=== PATIENT | female | born 1990 | race Caucasian/White ===

== ENCOUNTER 2018-06-14 11:04 | Emergency (ER) | payer BC ==
--- NOTE | 2018-06-14 11:31 | EDM.PDOC ---
ED HPI GENERAL MEDICAL PROBLEM - General Chief Complaint: Eye Problems Stated Complaint: RIGHT EYE SWOLLEN Time Seen by Provider: 06/14/18 11:12 Source of Information: Reports: Patient History Limitations: Reports: No Limitations - History of Present Illness INITIAL COMMENTS - FREE TEXT/NARRATIVE: HISTORY AND PHYSICAL: History of present illness: Patient is a 27-year-old female who presents to the emergency room today with complaints of swelling around the right eye and itching. She states yesterday she had been working in the garden and had noticed some tenderness to the skin under her right eye. "I thought maybe it was a bug bite or something". As the evening progressed the eye swelling became more prominent. She woke up this morning and unable to open her eye due to the swelling. She has no pain with ocular movements but does have discomfort when palpating the skin around the eye. She wears glasses, no contact lenses. Denies any visual changes other than the obstruction due to swelling. She has no eye watering or discharge. Denies any fever, chills, chest pain, SOB, cough, GI or symptoms. Denies any injury or trauma. Review of systems: As per history of present illness and below otherwise all systems reviewed and negative. Past medical history: As per history of present illness and as reviewed below otherwise noncontributory. Surgical history: As per history of present illness and as reviewed below otherwise noncontributory. Social history: No reported history of drug or alcohol abuse. Family history: As per history of present illness and as reviewed below otherwise noncontributory. Physical exam: General: Well-developed and well-nourished 27-year-old female. Alert and oriented. Nontoxic appearing and in no acute distress. HEENT: Atraumatic, normocephalic, pupils equal and reactive bilaterally, negative for conjunctival pallor or scleral icterus, moderate amount of soft tissue swelling to the soft tissue around the right eye (extending to the upper and lower lid). No pain with intraoccular movement, no ocular impingement. Her mucous membranes moist, throat clear, neck supple, nontender, trachea midline. No drooling or trismus noted. No meningeal signs Lungs: Clear to auscultation, breath sounds equal bilaterally, chest nontender. Heart: S1S2, regular rate and rhythm without overt murmur Abdomen: Soft, nondistended, nontender. Negative for masses or hepatosplenomegaly. Negative for costovertebral tenderness. Pelvis: Stable nontender. Genitourinary: Deferred. Rectal: Deferred. Skin: Mild erythema at site of soft tissue swelling around the right orbit. Otherwise skin is intact, warm, dry. No lesions or rashes noted. Extremities: Atraumatic, moves all extremities without difficulty, negative for cords or calf pain. Neurovascular unremarkable. Neuro: Awake, alert, oriented. Cranial nerves II through XII unremarkable. Cerebellum unremarkable. Motor and sensory unremarkable throughout. Exam nonfocal. Notes: Visual acuity is 20/25 on the right- 20/20 on the left and bilateral. This was done with glasses. CBC, CMP, Urine labs are within normal limits. CT shows preseptal fluid inferior and lateral to the right orbit. This may represent preseptal periorbital cellulitis. No evidence of orbital cellulitis. This information was shared with the patient. She continues to have no ocular pain with movement. Vital signs remained stable, afebrile. We did discuss possible admission which she declines. We'll place her on clindamycin 300 mg 3 times a day 10 days. Tramadol, #15, no refill. We discussed signs and symptoms that would prompt her to return to the emergency room. She voices understanding. We will refer her to the outpatient clinic for reevaluation next week. She is agreeable to plan of care and denies any further questions at this time. Diagnostics: CBC, CMP, Maxillofacial CT Therapeutics: Saline Lock, Rocephin, Solu-Medrol Impression: Periorbital Cellulitis, right Plan: 1. Continue to monitor the site for signs of improvement. As we discussed, if the swelling becomes worse, pain with eye movement, fever, chills or increased redness to the area-return for admission. 2. Take the antibiotics as directed. 3. Tylenol and/or ibuprofen as needed for pain management. Tramadol has been prescribed for moderate to severe pain. This medication may cause drowsiness a do not take it will driving her needing to be functioning outside of the house. 4. It's important that you follow up with her primary care provider for further evaluation and management next week, preferrable Friday. Return to the ED as needed and as discussed. Definitive disposition and diagnosis as appropriate pending reevaluation and review of above. Right eye Pain Score (Numeric/FACES): 1 - Related Data Allergies Allergy/AdvReac Type Severity Reaction Status Date / Time No Known Allergies Allergy Verified 09/07/16 02:06 Home Meds: Home Meds Clindamycin HCl 300 mg PO TID #30 capsule 06/14/18 [Rx] traMADol [Ultram] 50 mg PO Q4H PRN #15 tab 06/14/18 [Rx] Past Medical History Dermatologic History: Reports: Other (See Below) Other Dermatologic History: cyst remobed from left eye brow - Infectious Disease History Infectious Disease History: Reports: Chicken Pox, Shingles Social & Family History - Family History Family Medical History: Noncontributory - Caffeine Use Caffeine Use: Reports: None ED ROS GENERAL - Review of Systems Review Of Systems: ROS reveals no pertinent complaints other than HPI. ED EXAM GENERAL W FULL EYE - Physical Exam Exam: See Below (See dictation) Course - Vital Signs Last Recorded V/S: Last Vital Signs Temp 98 F 06/14/18 13:09 Pulse 78 06/14/18 13:09 Resp 19 06/14/18 13:09 BP 128/69 06/14/18 13:09 Pulse Ox 98 06/14/18 13:09 - Orders/Labs/Meds Orders: Active Orders 24 hr Category Date Time Status Maxillofacial with CM [Max Facial Sinus w Cont] [CT] Exams 06/14/18 11:18 Taken Stat Labs: Laboratory Tests 06/14/18 06/14/18 06/14/18 Range/Units 11:30 11:30 11:30 WBC 4.75 (4.0-11.0) K/uL RBC 3.93 L (4.30-5.90) M/uL Hgb 12.7 (12.0-16.0) g/dL Hct 36.8 (36.0-46.0) % MCV 93.6 (80.0-98.0) fL MCH 32.3 H (27.0-32.0) pg MCHC 34.5 (31.0-37.0) g/dL RDW Std Deviation 40.5 (28.0-62.0) fl RDW Coeff of Konstantin 12 (11.0-15.0) % Plt Count 222 (150-400) K/uL MPV 10.50 (7.40-12.00) fL Neut % (Auto) 56.7 (48.0-80.0) % Lymph % (Auto) 32.0 (16.0-40.0) % Haskell % (Auto) 8.4 (0.0-15.0) % Eos % (Auto) 2.7 (0.0-7.0) % Baso % (Auto) 0.2 (0.0-1.5) % Neut # (Auto) 2.7 (1.4-5.7) K/uL Lymph # (Auto) 1.5 (0.6-2.4) K/uL Haskell # (Auto) 0.4 (0.0-0.8) K/uL Eos # (Auto) 0.1 (0.0-0.7) K/uL Baso # (Auto) 0.0 (0.0-0.1) K/uL Nucleated RBC % 0.0 /100WBC Nucleated RBCs # 0 K/uL Sodium 140 (136-145) mmol/L Potassium 4.0 (3.5-5.1) mmol/L Chloride 106 (98-107) mmol/L Carbon Dioxide 25.3 (21.0-32.0) mmol/L BUN 22 H (7.0-18.0) mg/dL Creatinine 0.7 (0.6-1.0) mg/dL Est Cr Clr Drug Dosing 115.32 mL/min Estimated GFR (MDRD) > 60.0 ml/min Glucose 106 (74-106) mg/dL Calcium 8.6 (8.5-10.1) mg/dL Total Bilirubin 0.2 (0.2-1.0) mg/dL AST 18 (15-37) IU/L ALT 34 (14-63) IU/L Alkaline Phosphatase 80 (46-116) U/L Total Protein 6.8 (6.4-8.2) g/dL Albumin 3.9 (3.4-5.0) g/dL Globulin 2.9 (2.0-3.5) g/dL Albumin/Globulin Ratio 1.3 (1.3-2.8) HCG, Qual NEGATIVE (NEG) Meds: Medications Discontinued Medications Generic Name Dose Route Start Last Admin Trade Name Freq PRN Reason Stop Dose Admin Ceftriaxone Sodium/Dextrose 1 50 mls @ 100 mls/hr 06/14/18 12:07 06/14/18 12: 21 gm/ Premix IV 06/14/18 12:36 100 mls/hr ONETIME ONE Administration Iopamidol 75 ml 06/14/18 12:56 06/14/18 12:57 Isovue Multipack-370 (76%) IVPUSH 06/14/18 12:57 75 ml ONETIME STA Administration Methylprednisolone Sodium Succinate 125 mg 06/14/18 12:07 06/14/18 12:21 Solu-Medrol IVPUSH 06/14/18 12:08 125 mg ONETIME ONE Administration Departure - Departure Time of Disposition: 13:35 Disposition: Home, Self-Care 01 Clinical Impression: Periorbital cellulitis of right eye - Discharge Information Prescriptions: Clindamycin HCl 300 mg PO TID #30 capsule traMADol [Ultram] 50 mg PO Q4H PRN #15 tab PRN Reason: Pain Instructions: Cellulitis, Adult, [id number] Referrals: PCP,None [Primary Care Provider] - Forms: ED Department Discharge Additional Instructions: The following information is given to patients seen in the emergency department who are being discharged to home. This information is to outline your options for follow-up care. We provide all patients seen in our emergency department with a follow-up referral. The need for follow-up, as well as the timing and circumstances, are variable depending upon the specifics of your emergency department visit. If you don't have a primary care physician on staff, we will provide you with a referral. We always advise you to contact your personal physician following an emergency department visit to inform them of the circumstance of the visit and for follow-up with them and/or the need for any referrals to a consulting specialist. The emergency department will also refer you to a specialist when appropriate. This referral assures that you have the opportunity for follow-up care with a specialist. All of these measure are taken in an effort to provide you with optimal care, which includes your follow-up. Under all circumstances we always encourage you to contact your private physician who remains a resource for coordinating your care. When calling for follow-up care, please make the office aware that this follow-up is from your recent emergency room visit. If for any reason you are refused follow-up, please contact the [facility] Emergency Department at and asked to speak to the emergency department charge nurse. [facility] [address] [place] [address] [facility] [address] [place] [id number] 1. Continue to monitor the site for signs of improvement. As we discussed, if the swelling becomes worse, pain with eye movement, fever, chills or increased redness to the area-return for admission. 2. Take the antibiotics as directed. 3. Tylenol and/or ibuprofen as needed for pain management. Tramadol has been prescribed for moderate to severe pain. This medication may cause drowsiness a do not take it will driving her needing to be functioning outside of the house. 4. It's important that you follow up with her primary care provider for further evaluation and management next week, preferrable Friday. Return to the ED as needed and as discussed. - My Orders Last 24 Hours: My Active Orders 06/14/18 11:18 Maxillofacial with CM [Max Facial Sinus w Cont] [CT] Stat - Assessment/Plan Last 24 Hours: My Active Orders 06/14/18 11:18 Maxillofacial with CM [Max Facial Sinus w Cont] [CT] Stat
[2018-06-14 12:04] LABS: CHLORIDE,CL 106 mmol/L (98-107); SODIUM,NA 140 mmol/L (136-145)
[2018-06-14] MEDS ORDERED: methylPREDNISolone Sodium Succinate 125 MG/2 ML SDV IVPUSH ONE (12:07)
[2018-06-14] MEDS ORDERED: cefTRIAXone 1 GM in Premix Bag 1 BAG IV ONE (12:07)
[2018-06-14] MEDS ORDERED: Iopamidol 755 MG/ML 500 ML Multipack Bottle IVPUSH STA (12:56)
[2018-06-14 13:09] VITALS: BP 128/69
--- NOTE | 2018-06-15 13:53 | CT ---
EXAM DATE: 06/14/18 PATIENT'S AGE: 27 Patient: BIJU DEL CID Facility: [place], [place] Site . Site : [id number] Study: CT Facial [id number]/[id number] 12:49:51 PM Ordering Physician: Doctor Hester Final Report: INDICATION: possible right orbital cellulitis TECHNIQUE: Helical scans obtained through the orbital regions after administration of 75 cc of Isovue-370 intravenously. COMPARISON: None. FINDINGS: 1. Inferior and lateral to the right orbit, there is a lower density within the subcutaneous tissues consistent with small amounts of fluid/edema. Given history of prior trauma, this may represent hematoma. Fluid measures approximately 7 mm in thickness, 3.5 cm in maximum transverse length and 3 cm maximum cephalocaudad dimension. These changes are preseptal in location. No evidence for orbital cellulitis. 2. No facial bone fractures are identified. There is a 2 cm retention cyst in the right maxillary sinus inferiorly. Paranasal sinuses are otherwise clear. No air-fluid levels. 3. Both globes are intact. 4. Visualized intracranial structures are normal. IMPRESSION: Preseptal fluid inferior and lateral to the right orbit. These changes could be related to trauma or represent preseptal periorbital cellulitis. No evidence for orbital cellulitis. Dictated by Manuel Bliss MD @ 06/14/2018 1:23:42 PM Please note that all CT scans at this facility use dose modulation, iterative reconstruction, and/or weight-based dosing when appropriate to reduce radiation dose to as low as reasonably achievable. Dictated by: Manuel Bliss MD @ 06/14/2018 13:23:52 (Electronic Signature) Report Signed by Proxy. [facility]
== END 2018-06-14 13:57 | disposition home or self-care (01) ==
LOC: MW.ED 11:04
DX: L03.213 Periorbital cellulitis (principal)
CPT/HCPCS: 36415; 70487; 80053; 84703; 85025; 96365; 96375; 99284; J0696; J2930; Q9967

== ENCOUNTER 2022-03-10 13:29 | Emergency (ER) | payer OTHER ==
[2022-03-10] MEDS ORDERED: Lidocaine 1% 5 ML VIAL INJECT ONE (14:03)
[2022-03-10 15:18] VITALS: BP 110/70; PULSE 82
== END 2022-03-10 14:10 | disposition home or self-care (01) ==
LOC: MW.ED 13:29
DX: S61.212A Laceration without foreign body of right middle finger without damage to nail, initial encounter (principal); W26.8XXA Contact with other sharp object(s), not elsewhere classified, initial encounter
CPT/HCPCS: 12001; 73140-26-F7; 73140-F7; 99283-25

== ENCOUNTER 2023-03-08 13:32 | Emergency (ER) | payer OTHER ==
[2023-03-08] MEDS ORDERED: Sodium Chloride 0.9% 1,000 ML IV ONE (14:15)
[2023-03-08 15:25] LABS: CARBON DIOXIDE,CO2 27.4 mmol/L (21.0-32.0); POTASSIUM,K 3.9 mmol/L (3.5-5.1)
[2023-03-08] MEDS ORDERED: Cephalexin 500 MG Cap PO ONE (15:31)
[2023-03-08 16:22] VITALS: BP 122/62; PULSE 86
== END 2023-03-08 16:21 | disposition home or self-care (01) ==
LOC: MW.ED 13:32
DX: R55 Syncope and collapse (principal); N39.0 Urinary tract infection, site not specified
CPT/HCPCS: 36415; 70450; 71045; 80053; 81001; 83605; 84443; 84703; 85025; 93005; 96360; 99284; A9270; J7030; 93010; 99283

== ENCOUNTER 2025-08-19 10:30 | Emergency (ER) | payer BC, OTHER ==
[2025-08-19 12:53] LABS: BASOPHILS ABSOLUTE AUTO 0.02 K/uL (0.00-0.20); BASOPHILS PERCENT AUTO 0.2 % (0.0-1.0); EOSINOPHILS ABSOLUTE AUTO 0.09 K/uL (0.00-0.45); EOSINOPHILS PERCENT AUTO 1.0 % (0.0-6.0); IMMATURE GRAN ABSOLUTE AUTO 0.02 K/uL (0.00-0.05); IMMATURE GRAN PERCENT AUTO 0.2 % (0.0-0.4); LYMPHOCYTES ABSOLUTE AUTO 1.58 K/uL (1.00-4.80); LYMPHOCYTES PERCENT AUTO 17.0 % (24.0-44.0); MEAN PLATELET VOLUME 10.9 fL (9.4-12.3); MONOCYTES ABSOLUTE AUTO 0.61 K/uL (0.00-0.80); MONOCYTES PERCENT AUTO 6.5 % (0.0-8.0); NEUTROPHILS ABSOLUTE AUTO 7.00 K/uL (1.80-7.70); NEUTROPHILS PERCENT AUTO 75.1 % (41.0-71.0); NRBC ABSOLUTE 0.00 K/uL (0.00-0.02); NRBC PERCENT 0.0 /100WBC (0.0-0.2); PLATELET COUNT,PLT 220 K/uL (150-400); RED BLOOD CELL COUNT 4.04 M/uL (4.10-5.30); WHITE BLOOD CELL COUNT,WBC 9.32 K/uL (3.9-11.3)
[2025-08-19 13:19] LABS: A/G RATIO 1.6 (0.9-1.6); ALANINE AMINOTRANSFERASE,ALT 25 IU/L (14-63); ASPARTATE AMNIOTRANSFERASE,AST 11 IU/L (15-37); BILIRUBIN TOTAL 0.6 mg/dL (0.2-1.0); BLOOD UREA NITROGEN,BUN 21 mg/dL (7.0-18.0); CARBON DIOXIDE,CO2 27.3 mmol/L (21.0-32.0); CHLORIDE,CL 103 mmol/L (98-107); CREATININE 0.8 mg/dL (0.6-1.0); GLUCOSE RANDOM 91 mg/dL (74-106); POTASSIUM,K 4.0 mmol/L (3.5-5.1); PROTEIN TOTAL,TP 7.2 g/dL (6.4-8.2); SODIUM,NA 141 mmol/L (136-145)
[2025-08-19 13:31] LABS: ESTIMATED GFR 98 mL/min (>60)
[2025-08-19 14:30] LABS: APPEARANCE,URINE CLEAR; GLUCOSE,URINE NEGATIVE (NEGATIVE); OCCULT BLOOD,URINE NEGATIVE (NEGATIVE)
[2025-08-19] MEDS: Ketorolac 30 MG/ML SDV IVPUSH ONE (14:47)
[2025-08-19 15:39] VITALS: BP 94/64; PULSE 83
== END 2025-08-19 15:41 | disposition home or self-care (01) ==
LOC: MW.ED 10:30
DX: A08.4 Viral intestinal infection, unspecified (principal)
CPT/HCPCS: 36415; 80053; 81003; 81025; 85025; 96361; 96374; 99284; J1885; J7030; 99283